=== PATIENT | male | born 1995 | race Caucasian/White ===

== ENCOUNTER 2017-01-10 14:26 | Emergency (ER) | payer OTHER ==
[~2017-01-10] VITALS: Ht 185.4 cm; Wt 104.3 kg
[2017-01-10 15:03] VITALS: BP 115/65
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
== END 2017-01-10 15:39 | disposition home or self-care (01) ==
LOC: ER 14:26
DX: S01.01XD Laceration without foreign body of scalp, subsequent encounter (principal); F17.200 Nicotine dependence, unspecified, uncomplicated; F12.10 Cannabis abuse, uncomplicated; Z88.0 Allergy status to penicillin; V89.2XXD Person injured in unspecified motor-vehicle accident, traffic, subsequent encounter; Y93.89 Activity, other specified; Y92.89 Other specified places as the place of occurrence of the external cause; Y99.8 Other external cause status
CPT/HCPCS: 99281

== ENCOUNTER 2017-07-28 18:17 | Emergency (ER) | payer OTHER ==
[~2017-07-28] VITALS: Ht 185.4 cm; Wt 104.3 kg
[2017-07-28 18:31] VITALS: BP 135/67
[2017-07-28] MEDS ORDERED: HYDR-971 PO (18:58)
[2017-07-28] MEDS ORDERED: CLIN150C14 PO (18:58)
--- NOTE | 2017-07-28 18:59 | PHYS DOC ---
Past Medical History Past Medical History: No Pertinent History Past Surgical History: No Surgical History Alcohol Use: Occasionally Drug Use: Marijuana Adult General Chief Complaint Chief Complaint: DENTAL PROBLEM HPI HPI Patient is a 22 year old male who presents with a dental abscess that she noted this morning when he woke up. Patient denies any fever or trismus. He states he has a plan to follow-up with his own dentist for extraction. Review of Systems Review of Systems Constitutional: Denies fever or chills [] HENT: dental abscess Musculoskeletal: Denies back pain or joint pain [] Integument: Denies rash or skin lesions [] Neurologic: Denies headache, focal weakness or sensory changes [] Allergies Allergies Allergies Coded Allergies Type Severity Reaction Last Updated Verified Penicillins Allergy Unknown 07/28/17 No Physical Exam Physical Exam Constitutional: Well developed, well nourished, no acute distress, non-toxic appearance. [] HENT: Normocephalic, atraumatic, bilateral external ears normal, oropharynx moist, no oral exudates, nose normal. [] Moderate swelling noted on the left lower gum. Tooth #19 is decayed, erythema noted on the left lower gums. No fluctuance noted on the dental abscess. Skin: Warm, dry, no erythema, no rash. [] Neurologic: Alert and oriented X 3, normal motor function, normal sensory function, no focal deficits noted. [] Psychologic: Affect normal, judgement normal, mood normal. [] Current Patient Data Vital Signs Vital Signs Date Time Temp Pulse Resp B/P (MAP) Pulse Ox O2 Delivery O2 Flow Rate FiO2 07/28/17 18:31 98.1 87 19 100 Room Air 98.1 EKG EKG [] Radiology/Procedures Radiology/Procedures [] Course & Med Decision Making Course & Med Decision Making Pertinent Labs and Imaging studies reviewed. (See chart for details) Patient has a dental abscess, will discharged with clindamycin hydrocodone and ibuprofen for pain. Follow-up with the dentist next week. Helene Disclaimer Fatemehon Disclaimer This electronic medical record was generated, in whole or in part, using a voice recognition dictation system. Departure Departure Impression: Primary Impression: Dentalgia Additional Impressions: Dental abscess Infected dental caries Disposition: 01 HOME, SELF-CARE Condition: STABLE Referrals: NO PCP (PCP) Follow-up with your dentist next week Patient Instructions: Dental Abscess, Dental Caries-Brief Additional Instructions: You were seen for dental abscess. Please take the prescribed antibiotics as ordered. Follow-up with your dentist next week. Scripts Hydrocodone/Apap 5-325 (NORCO 5-325 TABLET) 1 Each Tablet 1 TAB PO Q4-6HRS, #10 TAB MUST FILL CLINDAMYCIN PRIOR TO NORCO Prov: MANI CHANDLER APRN 07/28/17 Clindamycin Hcl (CLINDAMYCIN HCL) 150 Mg Capsule 3 CAP PO TID, #90 CAP Prov: MANI CHANDLER APRN 07/28/17 Problem Qualifiers MANI CHANDLER APRN Jul 28, 2017 18:59
== END 2017-07-28 19:03 | disposition home or self-care (01) ==
LOC: ER 18:17
DX: K04.7 Periapical abscess without sinus (principal); K02.9 Dental caries, unspecified; Z88.0 Allergy status to penicillin
CPT/HCPCS: 99283